=== PATIENT | female | born 1995 | race Caucasian/White ===

== ENCOUNTER 2016-12-02 11:50 | Day surgery (SDC) | payer OTHER ==
--- NOTE | 2016-11-30 17:44 | GHP ---
[f rep st] HISTORY AND PHYSICAL DATE OF ADMISSION: 12/02/2016 ADMITTING DIAGNOSIS: Right lower quadrant abdominopelvic pain. HISTORY OF PRESENT ILLNESS: Patient is a 21-year-old, nulliparous, with last menstrual period the e June 2016, who presents to my office with complaints of right lower quadrant abdominopelvic pain for 3-4 months' duration. Pain is worsening. It is described as constant, dull, with no radi ation. It can be sharp and stabbing at times. No relieving or exacerbating factors. She has tried Motrin and medical marijuana with minimal relief. She has had a workup with GI, and had a negative colonoscopy. The patient does have a history of painful heavy menses. She has a Mirena IUD in [facility] since August of 2015, doing well, and does not have cycles with it. She has a history of ovarian cysts, was on OCPs in the past, did not tolerate side effects. Has a history of migraine headaches. The patient is interested in finding out exactly what is causing her pain, and relief of her pain, and wants to proceed with surgery at this time. She is wondering if she has endometriosis. PAST GYNECOLOGIC HISTORY: Nulliparous. Age of menarche was 13. Cycles used to be regular, but she would bleed every 5-7 days. They were heavy, moderate cramps. Since IUD placement, they are absen t. The patient had a normal Pap smear in 2014. No history of abnormal Pap smears. Denies any expo sure to sexually transmitted diseases. PAST MEDICAL HISTORY: Unremarkable. PAST SURGICAL HISTORY: Left shoulder reconstruction, 2013, 2014. MEDICATIONS: Include nortriptyline, Mirena IUD. ALLERGIES: No known drug allergies. SOCIAL HISTORY: Patient is single. She has been in a relationship for 2 years, male. She is a [employer] instructor. Denies alcohol/tobacco use. She does admit to medical marijuana use. FAMILY HISTORY: Father with alcoholism, as well as type 2 diabetes and liver cancer. REVIEW OF SYSTEMS: Ten-point review of systems negative. Positive pertinents noted in HPI. PHYSICAL EXAMINATION: VITAL SIGNS: On admission, vital signs are stable. Patient is afebrile. GE NERAL APPEARANCE: Well-nourished, well-developed female. Alert oriented x3. No apparent distress. CARDIOVASCULAR: Regular rate and rhythm. LUNGS: Clear to auscultation bilaterally. ABDOMEN: S oft, nontender. Mild tenderness to palpation, right lower quadrant. PELVIC: IUD strings are noted . Small anteverted uterus noted. Normal adnexa. EXTREMITIES: Normal to inspection without edema or calf tenderness. LAB WORK: None. STUDIES: We conclude a pelvic ultrasound was done, demonstrating a normal uterus measuring 6 x 2 x 4 cm, with no masses. Endocervical is normal, with IUD seen in proper position. Bilateral ovaries normal appearing, and no free fluid seen. ASSESSMENT AND PLAN: The patient is a 21-year-old, nulliparous, who presents with right lower quadr ant abdominopelvic pain. PLAN: 1. Surgery and diagnostic laparoscopy discussed with patient, along with its limitations, n.p.o. st atus, postop recovery. Surgical consents were obtained. Risks, benefits, alternatives were reviewe d with patient, including, but not limited to, bleeding, infection, damage to surrounding organs. 2. Patient understands all risks, wants to proceed with surgery at this time to find out what is ca using her pain. 3. Antibiotics phone technician to OR. 4. SCDs for DVT prophylaxis. /[id number]/MODL
[~2016-12-02 11:50] MED LIST: BUPIVACAINE 0.5% 30 ML SDV ONE; SILVER NITRATE APPLICATOR 1 APPL TP ONE; ceFAZolin 2 GM/DEXTROSE 100 ML IV ONE
[2016-12-02] MEDS ORDERED: CEFAZOLIN 2 GM/DEXTROSE/100 ML BAG IV ONE (12:17)
[2016-12-02] MEDS ORDERED: BUPIVACAINE 0.5% 30 ML SDV ONE (12:19)
[2016-12-02] MEDS ORDERED: SILVER NITRATE APPLICATOR 1 APPL TP ONE (12:20)
[2016-12-02] MEDS ORDERED: LR 1,000 ML IV ONE (12:20)
--- NOTE | 2016-12-02 12:59 | PDHPUP ---
History & Physical Update H&P update statement: This history and physical update is based on an assessment of the patient which was completed after admission or registration (within 24 hours), but prior to the surgery/procedure. H&P update: H&P reviewed & patient examined, no change in patient's condition since H&P completed
--- NOTE | 2016-12-02 13:24 | PDANEPAE ---
ANE Past Medical History - Cardiovascular History Hx Hypertension: No Hx Arrhythmias: No Hx Chest Pain: No Hx Coronary Artery / Peripheral Vascular Disease: No Hx CHF / Valvular Disease: No Hx Palpitations: No - Pulmonary History Hx COPD: No Hx Asthma/Reactive Airway Disease: No Hx Recent Upper Respiratory Infection: No Hx Oxygen in Use at Home: No - Neurologic History Hx Cerebrovascular Accident: No Hx Seizures: No Hx Dementia: No - Endocrine History Hx Diabetes: No - Renal History Hx Renal Disorders: No - Liver History Hx Hepatic Disorders: No - Neurological & Psychiatric Hx Hx Neurological and Psychiatric Disorders: No - Cancer History Hx Cancer: No - Congenital Disorder History Hx Congenital Disorders: No - GI History Hx Gastrointestinal Disorders: No - Chronic Pain History Chronic Pain: No ANE Review of Systems - Exercise capacity METS (RN): 4 METS ANE Patient History - Allergies Allergies/Adverse Reactions: No Known Allergies Allergy (Verified 12/01/16 15:03) - Home Medications Home Medications: MIRENA 12/01/16 [Last Taken Unknown] Nortriptyline HCl 12/01/16 [Last Taken Unknown] Tylenol 12/01/16 [Last Taken Unknown] Vicks Dayquil-Nyquil Cold-Flu 12/01/16 [Last Taken Unknown] - NPO status NPO Since - Liquids (Date): 12/02/16 NPO Since - Liquids (Time): 10:30 NPO Since - Solids (Date): 12/01/16 NPO Since - Solids (Time): 23:00 - Smoking Hx Smoking Status: Never smoked ANE Labs/Vital Signs - Vital Signs Blood Pressure: 107/59 Heart Rate: 70 Respiratory Rate: 18 O2 Sat (%): 95 Height: 182.88 cm Weight: 58.967 kg ANE Physical Exam - Airway Neck exam: FROM Mallampati Score: Class 1 Mouth exam: normal dental/mouth exam - Pulmonary Pulmonary: no respiratory distress - Cardiovascular Cardiovascular: regular rate and rhythym ANE Anesthesia Plan Anesthesia Plan: general endotracheal anesthesia
[2016-12-02] MEDS ORDERED: fentaNYL 100 MCG/2 ML INJ ONE ×2 (13:27→15:02)
[2016-12-02] MEDS ORDERED: MIDAZOLAM 2 MG/2 ML VIAL ONE (13:27)
[2016-12-02] MEDS ORDERED: PROPOFOL 200 MG/20 ML VIAL ONE ×2 (13:27→13:41)
[2016-12-02] MEDS ORDERED: METOCLOPRAMIDE 10 MG/2 ML VIAL ONE (13:39)
[2016-12-02] MEDS ORDERED: ROCURONIUM 50 MG/5 ML VIAL ONE (13:39)
[2016-12-02] MEDS ORDERED: RANITIDINE 50 MG/2 ML VIAL ONE (13:39)
[2016-12-02] MEDS ORDERED: ONDANSETRON 4 MG/2 ML VIAL ONE (13:39)
[2016-12-02] MEDS ORDERED: SUGAMMADEX SODIUM 200 MG/2 ML VIAL IVP ONE (13:39)
[2016-12-02] MEDS ORDERED: DEXAMETHASONE 4 MG/ML VIAL ONE (13:39)
[2016-12-02] MEDS ORDERED: KETOROLAC 30 MG/1 ML SDV ONE (13:39)
[2016-12-02] MEDS ORDERED: LR 500 ML IV PRN (13:42)
[2016-12-02] MEDS ORDERED: OXYCODONE/APAP 5/325 TAB PO PRN (13:42)
[2016-12-02] MEDS ORDERED: HYDROmorphONE/DILAUDID 1 MG/ML SYR IVP PRN (13:42)
[2016-12-02] MEDS ORDERED: DEXAMETHASONE 4 MG/ML VIAL IVP PRN (13:42)
[2016-12-02] MEDS ORDERED: METOCLOPRAMIDE 10 MG/2 ML VIAL IVP PRN (13:42)
[2016-12-02] MEDS ORDERED: PROMETHAZINE HCL 25 MG/ML INJ IVP PRN (13:42)
[2016-12-02] MEDS ORDERED: MEPERIDINE 25 MG/ML SYR IVP PRN (13:42)
[2016-12-02] MEDS ORDERED: ALBUTEROL 3 ML DEYVIAL IH PRN (13:42)
[2016-12-02] MEDS ORDERED: ONDANSETRON 4 MG/2 ML VIAL IVP PRN (13:42)
[2016-12-02] MEDS ORDERED: HYDROCODONE/APAP 5/325 TAB PO PRN (13:42)
[2016-12-02] MEDS ORDERED: ACETAMINOPHEN 500 MG TAB PO PRN (13:42)
[2016-12-02] MEDS ORDERED: NALOXONE HCL 0.4 MG/ML INJ IVP PRN (13:42)
--- NOTE | 2016-12-02 14:27 | POSTOPPROG ---
Post Op Note Date of Operation: 12/02/16 Surgeon: Ghazala Giles [employer] Specialist: Ligia aBh Anesthesiologist: Arianne Cunningham Anesthesia: GET(General Endotracheal) Pre-op Diagnosis: RLQ Abdominopelvic pain Post-op Diagnosis: RLQ Abdominopelvic pain; RLQ adhesions Indication: 21 y/o nullip with RLQ abdominal pelvic pain Procedure: Dx Laparoscopy with MIRIAM Findings: Grossly nml appearing ut, tubes, ovaries; Adhesions of omentum to RLQ Inf/Abcess present in the surg proc area at time of surgery?: No Depth: Superfical (Skin SQ) EBL: Minimal (5cc) Total fluids administered: IVFs: 400 cc LR OU: 50 cc clear urine at end of procedure Complications: None Specimen(s): None
[2016-12-02] MEDS ORDERED: EPINEPHrine RACEMIC INH 0.5 ML DEYVIAL IH ONE (14:31)
[2016-12-02] MEDS ORDERED: MEPERIDINE 25 MG/ML SYR ONE (14:40)
[2016-12-02] MEDS: fentaNYL 100 MCG/2 ML INJ IVP PRN ×2 (15:04→15:14)
--- NOTE | 2016-12-02 15:55 | POSTANESTH ---
Post Anesthetic Evaluation Cardiovascular Status: Normal, Stable Respiratory Status: Normal, Stable Level of Consciousness/Mental Status: Can Participate in Eval Pain Control: Adequate, Prn Tx Ordered Nausea/Vomiting Control: Adequate, Prn Tx Ordered Complications Possibly Related to Anesthesia: None Noted
[2016-12-02] MEDS ORDERED: HYDROCODONE/APAP 5/325 TAB ONE (15:58)
[2016-12-02 16:06] VITALS: TEMP 97.9
[2016-12-02 16:36] VITALS: RESP 13; O2SAT 99
--- NOTE | 2016-12-02 16:47 | GOP ---
[f rep st] OPERATIVE REPORT DATE OF OPERATION: 12/02/2016 SURGEON: Ghazala Giles DO SERVICE RIG OPERATOR: Marylou Bah DO. ANESTHESIA: General endotracheal. PREOPERATIVE DIAGNOSIS: Right lower quadrant abdominal pelvic pain. POSTOPERATIVE DIAGNOSIS: 1. Right lower quadrant abdominal pelvic pain. 2. Right lower quadrant adhesions. PROCEDURE PERFORMED: 1. Diagnostic laparoscopy. 2. Lysis of adhesions. FINDINGS: Grossly normal-appearing uterus, tubes, and ovaries bilaterally. No endometrial implants noted in the cul-de-sac, the uterosacral ligaments, or the ovaries. Upper abdomen grossly normal appearing. Appendix grossly normal appearing too. There was some adhesions of the omentum to the pelvic sidewall in the right lower quadrant. SPECIMENS: No specimens. ESTIMATED BLOOD LOSS: 5 cc. INDICATIONS: The patient is a 21-year-old, nulliparous who presents with a long history of right lower quadrant pain. This has been worked up by GI specialist and had a negative colonoscopy. Patient has a Mirena IUD in place. Patient would like surgery done to see if there is any endometriosis or to find the cause of her pain. We discussed the risks, benefits, and alternatives to surgery. The patient understands all risks of surgery, consents were signed , and she wants to proceed with surgery at this time. DESCRIPTION OF PROCEDURE: The patient was taken to the operating room where general anesthesia was obtained without difficulty. The patient was placed in dorsal lithotomy position, prepped and draped in the usual sterile manner. Bimanual exam reveals uterus of normal size, anteverted, and normal adnexa. A Lauren catheter was placed in her bladder. An open-sided speculum was then placed in the vagina. Anterior lip of the cervix was grasped with a single- tooth tenaculum. The uterus was then sounded to 7 cm, and an acorn manipulator was advanced to the uterus to use as a means to manipulate the uterus. The speculum was then removed. We then turned our attention to the patient's abdomen. An infraumbilical area was injected with 0.5% plain Marcaine. Then, a 5 mm infraumbilical skin incision was made with a knife. The Veress needle was inserted very carefully while tenting up the abdominal wall. Aspiration was negative. Abdomen is insufflated with carbon dioxide and pneumoperitoneum was obtained. After adequate insufflation, the Veress needle was then removed, and a 5 mm trocar was introduced through the infraumbilical incision into the abdominal cavity directly with the laparoscope. The patient was placed in Trendelenburg position. There was adequate visualization of the pelvic structures at this time. After injection of more local, another 5 mm skin incision was made in the left lower quadrant as well as the right lower quadrant. Atraumatic trocars were placed. Pelvic findings noted above. At this time, using the LigaSure, the adhesions of the omentum to the right pelvic sidewall were cauterized multiple times and lysed. Hemostasis was noted. The laparoscope was then removed from the abdomen as well as all trocars. All gas was allowed to escape from the abdomen. All 5 mm skin incisions were closed with dermaFLEX. Patient tolerated the procedure well. No complications. All instrument, sponge, and needle counts were correct x2. The patient was then awakened, taken out of dorsal lithotomy position and taken recovery room in stable condition. IV FLUIDS: 400 cc LR. URINE OUTPUT: 50 cc of clear urine at the end the procedure. /[id number]/MODL MTDD
[2016-12-02 17:25] VITALS: BP 111/70; PULSE 80
== END 2016-12-02 17:20 | disposition home or self-care (01) ==
LOC: FSGY 11:50
PROVIDERS: ATTEND Obstetrics & Gynecology
PROC: 0WJG4ZZ Inspection of Peritoneal Cavity, Percutaneous Endoscopic Approach (ICD-10-PCS; principal; 2016-12-02 13:45)
DX: R10.31 Right lower quadrant pain (principal); K66.0 Peritoneal adhesions (postprocedural) (postinfection)
CPT/HCPCS: J0690; J1100; J1885; J2250; J2405; J2704; J2765; J2780; J3010

== ENCOUNTER 2017-02-05 13:09 | Emergency (ER) | payer OTHER ==
[2017-02-05 13:16] VITALS: TEMP 98.6
[2017-02-05] MEDS ORDERED: DICYCLOMINE 10 MG CAP PO ONE (13:34)
[2017-02-05] MEDS ORDERED: FAMOTIDINE 20 MG TAB PO ONE (13:34)
[2017-02-05 13:41] LABS: % IMMATURE GRANULYOCYTES 0.3 % (0.0-1.1); ABSOLUTE IMMATURE GRANULOCYTES 0.02 10^3/uL (0.00-0.10); ABSOLUTE NRBC COUNT 0.02 10^3/uL (0-0.01); ADD DIFF? NO; ADD MORPH? NO; ADD SCAN? NO; ATYPICAL LYMPHOCYTE FLAG 20 (0-99); FRAGMENT RBC FLAG 0 (0-99); HEMOGLOBIN 15.6 g/dL (12.6-16.3); LEFT SHIFT FLG 0 (0-99); LIPEMIA HEMOLYSIS FLAG 90 (0-99); MEAN CELL HEMOGLOBIN 32.4 pg (27.9-34.1); MEAN CELL HEMOGLOBIN CONCENTR. 34.7 g/dL (32.4-36.7); MEAN CELL VOLUME 93.6 fL (81.5-99.8); NRBC-AUTO% 0.3 % (0.0-0.2); PLATELET CLUMPS FLAG 0 (0-99); PLATELET COUNT 198 10^3/uL (150-400); RED BLOOD CELL COUNT 4.81 10^6/uL (4.18-5.33); RED CELL DISTRIBUTION WIDTH 12.7 % (11.5-15.2)
[2017-02-05 13:53] LABS: ALANINE AMINOTRANSFERASE 28 IU/L (9-52); ALBUMIN 4.6 g/dL (3.5-5.0); ALKALINE PHOSPHATASE 54 IU/L (38-126); ANION GAP 13 mEq/L (8-16); ASPARTATE AMINOTRANSFERASE 20 IU/L (14-46); BILIRUBIN,TOTAL 0.7 mg/dL (0.1-1.4); BILIRUBIN-CONJUGATED 0.3 mg/dL (0.0-0.5); BILIRUBIN-UNCONJUGATED 0.4 mg/dL (0.0-1.1); CALCIUM 9.5 mg/dL (8.5-10.4); CARBON DIOXIDE 24 mEq/l (22-31); CHLORIDE 104 mEq/L (97-110); CREATININE 0.8 mg/dL (0.6-1.0); GLOMERULAR FILTRATION RATE > 60; GLUCOSE 128 mg/dL (70-100); SODIUM 141 mEq/L (134-144); TOTAL PROTEIN 7.2 g/dL (6.3-8.2)
--- NOTE | 2017-02-05 14:32 | EDPHY ---
H & P Time Seen by Provider: 02/05/17 14:29 HPI/ROS: HPI: This is a 21-year-old female who presents with Chief Complaint: Abdominal pain Location: Abdomen Quality: Crampy pain Duration: 1 week Signs and Symptoms: No fever, no chills, + nausea, no vomiting, + alternating stools between constipation and diarrhea, no indigestion, no vaginal bleeding, no vaginal discharge Timing: Intermittent Severity: Moderate Context: Patient reports within the last week she has it been experiencing generalized abdominal crampiness in alternating stools between constipation and diarrhea. She has recently changed her diet diet to be elicited the as well as primarily vegetables. She has been followed by OBGYN for endometriosis. Currently has a Merina IUD. Reports that this abdominal pain is different from her pelvic pain she normally experiences with endometrial pain. Modifying Factors: Call primary care provider but unable to be seen today. Went to urgent care had a urine dipstick that was normal per patient. Comment: ROS: Eyes: No blurred vision Respiratory: No shortness of breath, no cough Cardiovascular: No chest pain Gastrointestinal: + nausea, no vomiting no diarrhea Genitourinary: No dysuria Extremities: No myalgias Neurologic: No weakness, no numbness Skin: No rashes Hematologic: No bruising, no bleeding MEDICAL/SURGICAL HISTORY: Endometriosis diagnosed laparoscopically, GERD, peptic ulcer disease. Social History: currently in a relationship. Smoking Status: Never smoked Physical Exam: CONSTITUTIONAL: Well-appearing young adult white female, awake and alert, no obvious distress HEENT: Atraumatic and normocephalic, PERRL, EOMI. Tympanic membranes clear. . Oropharynx clear, no exudate and moist pink mucosa. Airway patent. No lymphadenopathy. No meningismus. Cardiovascular: Normal S1/S2, regular rate, regular rhythm, without murmur rub or gallop. PULMONARY/CHEST: Symmetrical and nontender. Clear to auscultation bilaterally Good air movement. No accessory muscle usage. ABDOMEN: Soft, nondistended, mild right upper quadrant tenderness to deep palpation, no rebound, no guarding, no peritoneal signs, no masses or organomegaly. No CVAT. EXTREMITIES: 2/2 pulses, no deformities, no clubbing, no cyanosis or edema. NEUROLOGICAL: no focal neuro deficits. GCS 15. SKIN: Warm and dry, no erythema. no rash. Good capillary refill. Constitutional: Initial Vital Signs Temperature (C) 37 C 02/05/17 13:14 Heart Rate 77 02/05/17 13:14 Respiratory Rate 16 02/05/17 13:14 Blood Pressure 109/67 02/05/17 13:14 O2 Sat (%) 97 02/05/17 13:14 O2 Delivery Mode Room Air Allergies/Adverse Reactions: No Known Allergies Allergy (Verified 02/05/17 13:12) Home Medications: Medication Instructions Recorded MIRENA 12/01/16 Nortriptyline HCl 12/01/16 Dicyclomine [Bentyl 20 MG (*)] 20 mg PO QID PRN #12 tab 02/05/17 PRILOSEC 02/05/17 Medical Decision Making ED Course/Re-evaluation: Urinalysis, urine , labs, oral medication, RUQ US Labs and urinalysis completely unremarkable Reassessed patient 1 hour later: Nose complete relief abdominal cramping 1515: Patient now complaining of being hungry and wanting to leave. Right upper quadrant ultrasound is completed. Patient wants to eat. 1535: Called by radiologist right upper quadrant ultrasound does not show any stones, sludge, common bile duct dilatation Differential Diagnosis: Abdominal pain in a female including but not limited to ovarian cyst, pelvic inflammatory disease, ovarian torsion, urinary tract infection, and appendicitis. - Data Points Laboratory Results: Laboratory Results 02/05/17 13:25 02/05/17 13:25 02/05/17 02/05/17 02/05/17 14:23 13:25 13:25 WBC 7.66 10^3/uL 10^3/uL (3.80-9.50) RBC 4.81 10^6/uL 10^6/uL (4.18-5.33) Hgb 15.6 g/dL g/dL (12.6-16.3) Hct 45.0 % % (38.0-47.0) MCV 93.6 fL fL (81.5-99.8) MCH 32.4 pg pg (27.9-34.1) MCHC 34.7 g/dL g/dL (32.4-36.7) RDW 12.7 % % (11.5-15.2) Plt Count 198 10^3/uL 10^3/uL (150-400) MPV 12.0 fL H fL (8.7-11.7) Neut % (Auto) 58.9 % % (39.3-74.2) Lymph % (Auto) 29.8 % % (15.0-45.0) [place] % (Auto) 9.4 % % (4.5-13.0) Eos % (Auto) 0.9 % % (0.6-7.6) Baso % (Auto) 0.7 % % (0.3-1.7) Nucleat RBC Rel Count 0.3 % H % (0.0-0.2) Absolute Neuts (auto) 4.52 10^3/uL 10^3/uL (1.70-6.50) Absolute Lymphs (auto) 2.28 10^3/uL 10^3/uL (1.00-3.00) Absolute Monos (auto) 0.72 10^3/uL 10^3/uL (0.30-0.80) Absolute Eos (auto) 0.07 10^3/uL 10^3/uL (0.03-0.40) Absolute Basos (auto) 0.05 10^3/uL 10^3/uL (0.02-0.10) Absolute Nucleated RBC 0.02 10^3/uL H 10^3/uL (0-0.01) Immature Gran % 0.3 % % (0.0-1.1) Immature Gran # 0.02 10^3/uL 10^3/uL (0.00-0.10) Sodium 141 mEq/L mEq/L (134-144) Potassium 4.0 mEq/L mEq/L (3.5-5.2) Chloride 104 mEq/L mEq/L (97-110) Carbon Dioxide 24 mEq/l mEq/l (22-31) Anion Gap 13 mEq/L mEq/L (8-16) BUN 10 mg/dL mg/dL (7-23) Creatinine 0.8 mg/dL mg/dL (0.6-1.0) Estimated GFR > 60 Glucose 128 mg/dL H mg/dL (70-100) Calcium 9.5 mg/dL mg/dL (8.5-10.4) Total Bilirubin 0.7 mg/dL mg/dL (0.1-1.4) Conjugated Bilirubin 0.3 mg/dL mg/dL (0.0-0.5) Unconjugated Bilirubin 0.4 mg/dL mg/dL (0.0-1.1) AST 20 IU/L IU/L (14-46) ALT 28 IU/L IU/L (9-52) Alkaline Phosphatase 54 IU/L IU/L (38-126) Total Protein 7.2 g/dL g/dL (6.3-8.2) Albumin 4.6 g/dL g/dL (3.5-5.0) Lipase 123 IU/L IU/L (23-300) Urine Color PALE YELLOW Urine Appearance HAZY Urine pH 6.0 (5.0-7.5) Ur Specific Hagerman 1.005 (1.002-1.030) Urine Protein NEGATIVE (NEGATIVE) Urine Ketones NEGATIVE (NEGATIVE) Urine Blood NEGATIVE (NEGATIVE) Urine Nitrate NEGATIVE (NEGATIVE) Urine Bilirubin NEGATIVE (NEGATIVE) Urine Urobilinogen NEGATIVE EU EU (0.2-1.0) Ur Leukocyte Esterase NEGATIVE (NEGATIVE) Urine Glucose NEGATIVE (NEGATIVE) Medications Given: Discontinued Medications Dicyclomine HCl (Bentyl) 20 mg PO EDNOW ONE Stop: 02/05/17 13:35 Last Admin: 02/05/17 13:44 Dose: 20 mg Famotidine (Pepcid) 20 mg PO EDNOW ONE Stop: 02/05/17 13:35 Last Admin: 02/05/17 13:44 Dose: 20 mg Departure - Departure Disposition: Home, Routine, Self-Care Clinical Impression: Chronic abdominal pain Irritable bowel Qualifiers: Irritable bowel syndrome type: with both diarrhea and constipation Qualified Code(s): K58.2 - Mixed irritable bowel syndrome Condition: Good Instructions: Irritable Bowel Syndrome (ED) Referrals: Hortencia Sauceda MD [Primary Care Provider] - 3-4 days, if not improved Prescriptions: Dicyclomine [Bentyl 20 MG (*)] 20 mg PO QID PRN #12 tab PRN Reason: Gi Distress
[2017-02-05 14:39] LABS: COLOR PALE YELLOW; LEUKOCYTE ESTERASE,URINE NEGATIVE (NEGATIVE); NITRITE,URINE NEGATIVE (NEGATIVE)
[2017-02-05 15:43] VITALS: BP 115/56; PULSE 68; RESP 14; O2SAT 98
== END 2017-02-05 15:43 | disposition home or self-care (01) ==
DX: K58.2 Mixed irritable bowel syndrome (principal); G89.29 Other chronic pain

== ENCOUNTER 2017-05-26 06:55 | Emergency (ER) | payer SELFPAY ==
[2017-05-26] MEDS ORDERED: ONDANSETRON 4 MG/2 ML VIAL ONE (06:59)
[2017-05-26] MEDS ORDERED: ONDANSETRON 4 MG/2 ML VIAL IVP ONE ×2 (07:00→12:47)
[2017-05-26] MEDS ORDERED: NS 1,000 ML IV ONE ×2 (07:00→08:50)
--- NOTE | 2017-05-26 07:03 | EDPHY ---
H & P Stated Complaint: N,V,D Time Seen by Provider: 05/26/17 07:00 HPI/ROS: CHIEF COMPLAINT: Nausea, vomiting, diarrhea HISTORY OF PRESENT ILLNESS: The patient presents the ED with complaints of acute nausea, vomiting, diarrhea and generalized crampy abdominal pain. The patient's symptoms began at 5 o'clock this morning. The patient reportedly felt well yesterday. She did have a mild cough. She reports subjective fevers. She denies dysuria. The patient does have a prior history of endometriosis. She is status post laparoscopic evaluation of endometriosis remotely. The patient denies any additional acute complaints. She reports her symptoms are moderate in nature. REVIEW OF SYSTEMS: A comprehensive 10 point review of systems is otherwise negative aside from elements mentioned in the history of present illness. Source: Patient - Personal History Current Tetanus/Diphtheria Vaccine: Yes Current Tetanus Diphtheria and Acellular Pertussis (TDAP): Yes - Medical/Surgical History Hx Asthma: No Hx Chronic Respiratory Disease: No Hx Diabetes: No Hx Cardiac Disease: No Hx Renal Disease: No Hx Cirrhosis: No Hx Alcoholism: No Hx HIV/AIDS: No Hx Splenectomy or Spleen Trauma: No Other PMH: ADD, L shoulder reconstruction x 2/ulcers/endometriosis - Social History Smoking Status: Never smoked - Physical Exam Exam: General Appearance: Alert, mild discomfort secondary to nausea Eyes: Pupils equal and round no pallor or injection ENT, Mouth: Mucous membranes moist Respiratory: There are no retractions, lungs are clear to auscultation Cardiovascular: Regular rate and rhythm Gastrointestinal: Minimal generalized tenderness, no peritoneal signs, normal bowel sounds Neurological: A&O, normal motor function, normal sensory exam, normal cranial nerves Skin: Warm and dry, no rashes Musculoskeletal: Neck is supple nontender Extremities: symmetrical, full range of motion Constitutional: Initial Vital Signs Temperature (C) 36.6 C 05/26/17 06:59 Heart Rate 108 H 05/26/17 06:59 Respiratory Rate 22 H 05/26/17 06:59 Blood Pressure 122/84 H 05/26/17 06:59 O2 Sat (%) 100 05/26/17 06:59 O2 Delivery Mode Room Air Allergies/Adverse Reactions: No Known Allergies Allergy (Verified 02/05/17 13:12) Home Medications: Medication Instructions Recorded PRILOSEC 02/05/17 Ondansetron Odt [Zofran Odt] 4 mg PO Q4PRN PRN #20 tab 05/26/17 Medical Decision Making ED Course/Re-evaluation: The patient presents to the ED with acute generalized abdominal pain, nausea, vomiting and diarrhea. The patient's initial abdominal examination is reassuring her presentation is one consistent with acute gastroenteritis. The patient had an IV established. She received 4 mg of IV Zofran. The patient received 2 L of normal saline. She has a markedly leukocytosis likely from de margination and vomiting. The patient did developed some recurrent vomiting and received 1 mg of Ativan. The patient was re-evaluated by myself at 10:00 a.m. and is improving. Plan will be for observation and serial exams. The patient was re-evaluated by myself at 11:30 a.m.. She is feeling much better. She is given a po challenge. Repeat CBC demonstrates improving leukocytosis. The patient clinically has no evidence of appendicitis. The patient had another episode of vomiting at 12:30 p.m.. She will require admission to the hospital for ongoing vomiting and IV fluid rehydration. Consultation is made with the hospitalist service. The patient will be admitted by Dr. Yanet Kingsley for observation today. Differential Diagnosis: Differential diagnosis considered includes gastroenteritis, pancreatitis, cholecystitis, appendicitis, urinary tract infection - Data Points Laboratory Results: Laboratory Results 05/26/17 09:47 05/26/17 06:55 05/26/17 05/26/17 05/26/17 09:47 09:47 07:10 WBC 18.10 10^3/uL H 10^3/uL (3.80-9.50) RBC 4.20 10^6/uL 10^6/uL (4.18-5.33) Hgb 13.8 g/dL g/dL (12.6-16.3) Hct 38.2 % D % (38.0-47.0) MCV 91.0 fL fL (81.5-99.8) MCH 32.9 pg pg (27.9-34.1) MCHC 36.1 g/dL g/dL (32.4-36.7) RDW 12.0 % % (11.5-15.2) Plt Count 165 10^3/uL D 10^3/uL (150-400) MPV 11.6 fL fL (8.7-11.7) Neut % (Auto) 88.6 % H % (39.3-74.2) Lymph % (Auto) 3.3 % L % (15.0-45.0) [place] % (Auto) 7.2 % % (4.5-13.0) Eos % (Auto) 0.2 % L % (0.6-7.6) Baso % (Auto) 0.3 % % (0.3-1.7) Nucleat RBC Rel Count 0.0 % % (0.0-0.2) Absolute Neuts (auto) 16.06 10^3/uL H 10^3/uL (1.70-6.50) Absolute Lymphs (auto) 0.59 10^3/uL L 10^3/uL (1.00-3.00) Absolute Monos (auto) 1.30 10^3/uL H 10^3/uL (0.30-0.80) Absolute Eos (auto) 0.03 10^3/uL 10^3/uL (0.03-0.40) Absolute Basos (auto) 0.05 10^3/uL 10^3/uL (0.02-0.10) Absolute Nucleated RBC 0.00 10^3/uL 10^3/uL (0-0.01) Immature Gran % 0.4 % % (0.0-1.1) Immature Gran # 0.07 10^3/uL 10^3/uL (0.00-0.10) Sodium Potassium Chloride Carbon Dioxide Anion Gap BUN Creatinine Estimated GFR Glucose Calcium Total Bilirubin 0.8 mg/dL mg/dL (0.1-1.4) Conjugated Bilirubin 0.4 mg/dL mg/dL (0.0-0.5) Unconjugated Bilirubin 0.4 mg/dL mg/dL (0.0-1.1) AST 30 IU/L IU/L (14-46) ALT 30 IU/L IU/L (9-52) Alkaline Phosphatase 71 IU/L IU/L (38-126) Total Protein 8.0 g/dL g/dL (6.3-8.2) Albumin 5.4 g/dL H g/dL (3.5-5.0) Lipase 229 IU/L IU/L (23-300) Beta HCG, Qual Urine Color YELLOW Urine Appearance HAZY Urine pH 8.0 H (5.0-7.5) Ur Specific [place] 1.014 (1.002-1.030) Urine Protein NEGATIVE (NEGATIVE) Urine Ketones TRACE H (NEGATIVE) Urine Blood NEGATIVE (NEGATIVE) Urine Nitrate NEGATIVE (NEGATIVE) Urine Bilirubin NEGATIVE (NEGATIVE) Urine Urobilinogen NEGATIVE EU EU (0.2-1.0) Ur Leukocyte Esterase NEGATIVE (NEGATIVE) Urine Glucose NEGATIVE (NEGATIVE) 05/26/17 05/26/17 05/26/17 06:55 06:55 06:55 WBC 25.00 10^3/uL H 10^3/uL (3.80-9.50) RBC 5.24 10^6/uL 10^6/uL (4.18-5.33) Hgb 16.8 g/dL H g/dL (12.6-16.3) Hct 49.7 % H % (38.0-47.0) MCV 94.8 fL fL (81.5-99.8) MCH 32.1 pg pg (27.9-34.1) MCHC 33.8 g/dL g/dL (32.4-36.7) RDW 12.1 % % (11.5-15.2) Plt Count 308 10^3/uL 10^3/uL (150-400) MPV 11.6 fL fL (8.7-11.7) Neut % (Auto) 68.4 % % (39.3-74.2) Lymph % (Auto) 20.7 % % (15.0-45.0) [place] % (Auto) 8.6 % % (4.5-13.0) Eos % (Auto) 1.2 % % (0.6-7.6) Baso % (Auto) 0.4 % % (0.3-1.7) Nucleat RBC Rel Count 0.0 % % (0.0-0.2) Absolute Neuts (auto) 17.11 10^3/uL H 10^3/uL (1.70-6.50) Absolute Lymphs (auto) 5.18 10^3/uL H 10^3/uL (1.00-3.00) Absolute Monos (auto) 2.15 10^3/uL H 10^3/uL (0.30-0.80) Absolute Eos (auto) 0.29 10^3/uL 10^3/uL (0.03-0.40) Absolute Basos (auto) 0.09 10^3/uL 10^3/uL (0.02-0.10) Absolute Nucleated RBC 0.00 10^3/uL 10^3/uL (0-0.01) Immature Gran % 0.7 % % (0.0-1.1) Immature Gran # 0.18 10^3/uL H 10^3/uL (0.00-0.10) Sodium 146 mEq/L H mEq/L (134-144) Potassium 3.8 mEq/L mEq/L (3.5-5.2) Chloride 100 mEq/L mEq/L (97-110) Carbon Dioxide 17 mEq/l L mEq/l (22-31) Anion Gap 29 mEq/L H mEq/L (8-16) BUN 14 mg/dL mg/dL (7-23) Creatinine 0.8 mg/dL mg/dL (0.6-1.0) Estimated GFR > 60 Glucose 184 mg/dL H mg/dL (70-100) Calcium 10.0 mg/dL mg/dL (8.5-10.4) Total Bilirubin Conjugated Bilirubin Unconjugated Bilirubin AST ALT Alkaline Phosphatase Total Protein Albumin Lipase Beta HCG, Qual NEGATIVE Urine Color Urine Appearance Urine pH Ur Specific [place] Urine Protein Urine Ketones Urine Blood Urine Nitrate Urine Bilirubin Urine Urobilinogen Ur Leukocyte Esterase Urine Glucose Medications Given: Discontinued Medications Sodium Chloride (Ns) 1,000 mls @ 0 mls/hr IV ONCE ONE; Wide Open PRN Reason: Protocol Stop: 05/26/17 07:01 Last Admin: 05/26/17 07:57 Dose: 1,000 mls Sodium Chloride (Ns) 1,000 mls @ 0 mls/hr IV EDNOW ONE; Wide Open PRN Reason: Protocol Stop: 05/26/17 08:51 Last Admin: 05/26/17 09:11 Dose: 1,000 mls Ketorolac Tromethamine (Toradol) 30 mg IVP EDNOW ONE Stop: 05/26/17 07:15 Last Admin: 05/26/17 07:18 Dose: 30 mg Lorazepam (Ativan Injection) 1 mg IVP EDNOW ONE Stop: 05/26/17 07:53 Last Admin: 05/26/17 07:58 Dose: 1 mg Ondansetron HCl (Zofran) 4 mg IVP EDNOW ONE Stop: 05/26/17 07:01 Last Admin: 05/26/17 07:01 Dose: 4 mg Ondansetron HCl (Zofran) 4 mg IVP EDNOW ONE Stop: 05/26/17 12:48 Last Admin: 05/26/17 12:52 Dose: 4 mg Departure - Departure Disposition: [facility] Inpatient Acute Clinical Impression: Gastroenteritis, Acute abdominal pain Condition: Good
[2017-05-26 07:14] LABS: % IMMATURE GRANULYOCYTES 0.7 % (0.0-1.1); ABSOLUTE IMMATURE GRANULOCYTES 0.18 10^3/uL (0.00-0.10); ADD DIFF? NO; ADD MORPH? NO; ADD SCAN? NO; ATYPICAL LYMPHOCYTE FLAG 10 (0-99); FRAGMENT RBC FLAG 0 (0-99); HEMATOCRIT 49.7 % (38.0-47.0); HEMOGLOBIN 16.8 g/dL (12.6-16.3); LEFT SHIFT FLG 0 (0-99); LIPEMIA HEMOLYSIS FLAG 90 (0-99); MEAN CELL HEMOGLOBIN 32.1 pg (27.9-34.1); MEAN CELL HEMOGLOBIN CONCENTR. 33.8 g/dL (32.4-36.7); MEAN CELL VOLUME 94.8 fL (81.5-99.8); MEAN PLATELET VOLUME 11.6 fL (8.7-11.7); PLATELET CLUMPS FLAG 0 (0-99); PLATELET COUNT 308 10^3/uL (150-400); RED BLOOD CELL COUNT 5.24 10^6/uL (4.18-5.33); RED CELL DISTRIBUTION WIDTH 12.1 % (11.5-15.2)
[2017-05-26] MEDS ORDERED: KETOROLAC 30 MG/1 ML SDV IVP ONE (07:14)
[2017-05-26 07:26] LABS: ANION GAP 29 mEq/L (8-16); CARBON DIOXIDE 17 mEq/l (22-31); CHLORIDE 100 mEq/L (97-110); CREATININE 0.8 mg/dL (0.6-1.0); GLOMERULAR FILTRATION RATE > 60; GLUCOSE 184 mg/dL (70-100); POTASSIUM 3.8 mEq/L (3.5-5.2); SODIUM 146 mEq/L (134-144)
[2017-05-26] MEDS ORDERED: LORazepam 2 MG/ML INJ IVP ONE (07:52)
[2017-05-26 08:15] LABS: ALBUMIN 5.4 g/dL (3.5-5.0); BILIRUBIN,TOTAL 0.8 mg/dL (0.1-1.4); BILIRUBIN-CONJUGATED 0.4 mg/dL (0.0-0.5); BILIRUBIN-UNCONJUGATED 0.4 mg/dL (0.0-1.1)
[2017-05-26 09:13] VITALS: RESP 18
[2017-05-26 09:55] LABS: % IMMATURE GRANULYOCYTES 0.4 % (0.0-1.1); ABSOLUTE IMMATURE GRANULOCYTES 0.07 10^3/uL (0.00-0.10); ADD DIFF? NO; ADD MORPH? NO; ADD SCAN? NO; ATYPICAL LYMPHOCYTE FLAG 0 (0-99); FRAGMENT RBC FLAG 0 (0-99); HEMATOCRIT 38.2 % (38.0-47.0); HEMOGLOBIN 13.8 g/dL (12.6-16.3); LEFT SHIFT FLG 10 (0-99); LIPEMIA HEMOLYSIS FLAG 90 (0-99); MEAN CELL HEMOGLOBIN 32.9 pg (27.9-34.1); MEAN CELL HEMOGLOBIN CONCENTR. 36.1 g/dL (32.4-36.7); MEAN PLATELET VOLUME 11.6 fL (8.7-11.7); PLATELET CLUMPS FLAG 10 (0-99); PLATELET COUNT 165 10^3/uL (150-400)
[2017-05-26 10:38] LABS: COLOR YELLOW; LEUKOCYTE ESTERASE,URINE NEGATIVE (NEGATIVE); NITRITE,URINE NEGATIVE (NEGATIVE)
[2017-05-26 12:30] VITALS: TEMP 98.4
[2017-05-26 14:29] VITALS: BP 111/64; PULSE 98; O2SAT 95
== END 2017-05-26 14:29 | disposition home or self-care (01) ==
LOC: EDUNIT# → UNDOADMOB 12:36
DX: K52.9 Noninfective gastroenteritis and colitis, unspecified (principal); E86.9 Volume depletion, unspecified
CPT/HCPCS: 96374; J1885; J2060; J2405

== ENCOUNTER 2018-11-16 05:55 | Day surgery (SDC) | payer OTHER | END 2018-11-16 11:49 | disposition home or self-care (01) | LOC: FSGY 05:55 ==